=== PATIENT | male | born 1950 | race Caucasian/White ===

== ENCOUNTER 2023-11-03 07:18 | Day surgery (SDC) | payer MEDICARE, BC, SELFPAY ==
--- NOTE | 2023-11-03 | PATH_ITS ---
[facility] Accession Number: [id number] No. of containers..01 Tissue . 01 Material submitted: . colon - COLON, TRANSVERSE . 01 Diagnosis: COLON, TRANSVERSE: Tubular adenoma. STO 11/11/2023 1138 Local . 01 Electronically signed: . Eitan Mendoza MD, Pathologist NPI- [id number] . 01 Gross description: . TRANSVERSE: Received in formalin is 1 fragment(s) of quinn, soft tissue measuring 0.6 x 0.4 x 0.3 cm submitted entirely in 1 cassette(s) /PIETER 11/11/2023 1138 Local . 01 Pathologist provided ICD-10: D12.3 . 01 CPT . 961082 Specimen Comment: A courtesy copy of this report has been sent to [phone] Performed at: [address] [facility] [id number] MD Eitan Mendoza MD Phone: [phone]
[2023-11-03 07:47] VITALS: BP 149/76; PULSE 61; RESP 17; TEMP 36.4; O2SAT 98
[2023-11-03] MEDS: LACTATED RINGERS 1,000 ML 42 ML IV (08:06)
--- NOTE | 2023-11-03 08:36 | P.HP_ITS ---
History of Present Illness History of Present Illness Date Patient Seen: 11/03/23 Time Patient Seen: 08:36 Chief complaint: Dx Colonoscopy w/poss bx Narrative: Pan is a 73-year-old man with a history of colon polyps. His last colonoscopy was about 6 years ago and some polyps were taken. No known family history of colon cancer. [facility] Social History Smoking Status: Never smoker Meds Home Medications and Allergies Home Medications Medication Instructions Recorded Confirmed Type peg 3350-sod sulf,rawxo-eox-nnv 1,000 ml PO DIRECTED #2,000 mL 10/11/23 11/03/23 Rx 178.7-7.3-0.5-1.12-0.9 gram oral soln (Suflave) Allergies Allergy/AdvReac Type Severity Reaction Status Date / Time No Known Drug Allergies Allergy Verified 11/03/23 08:07 Exam Vital Signs (past 8 hours): - 11/03/23 07:47 Temperature 97.6 F Pulse Rate 61 Respiratory Rate 17 Blood Pressure 149/76 H Pulse Oximetry 98 Oxygen Delivery Method Room Air Oxygen Delivery Method Room Air Const General: healthy appearing Resp Effort & Inspection: normal respiratory effort Assessment & Plan Assessment and plan (1) History of colon polyps: Status: Acute Plan We reviewed the risks and benefits of colonoscopy and he would like to proceed.
[2023-11-03 09:12] VITALS: BP 109/65; PULSE 56; RESP 18; TEMP 36.4; O2SAT 97
--- NOTE | 2023-11-03 09:16 | PM.OP.COLON ---
Operative Date/Time/Diagnoses Date of procedure: 11/03/23 Time of procedure: 09:16 Pre-op diagnosis: History of polyps Post-op diagnosis: same Procedure & Clinicians Study performed: Colonoscopy Same procedure as scheduled: Yes Surgeon: Josh Decker Procedure Notes Procedure in detail: Surgeon: Josh Decker MD Anesthesia: Carlo Hobbs MD Procedure: The patient was brought to the endoscopy suite, placed in left lateral decubitus position. The patient was connected to monitoring devices. A time-out was performed. Sedation was administered. Once the patient was adequately sedated, a digital rectal exam was performed and was normal. The scope was then inserted and advanced to the cecum where the appendiceal orifice was identified and photographed. The scope was then slowly withdrawn over greater than 6 minutes. The mucosa was thoroughly inspected. There was a 5 mm polyp in the mid transverse colon removed with a cold snare. There was some diverticulosis in the sigmoid colon. The scope was retroflexed in the rectum. No other abnormalities were seen. The scope was straightened and removed. The patient was awakened and brought to recovery. Scope withdrawal time: 12 minutes Sedation time: 20 minutes EBL: 5 mL Findings: Small polyp in the transverse colon and sigmoid colon diverticulosis Post-procedure Disposition: PACU
[2023-11-03 09:17] VITALS: BP 113/74; PULSE 55; RESP 18; TEMP 36.4; O2SAT 98
[2023-11-03 09:25] VITALS: BP 132/86; PULSE 55; RESP 14; TEMP 36.4; O2SAT 99
== END 2023-11-03 09:37 | disposition home or self-care (01) ==
PROVIDERS: PCP Registered Nurse; Referring Provider Surgery; Visit Provider Surgery
PROC: 0DJD8ZZ Inspection of Lower Intestinal Tract, Via Natural or Artificial Opening Endoscopic (ICD-10-PCS; CPT 45378; principal; 2023-11-03 08:45)
DX: Z12.11 Encounter for screening for malignant neoplasm of colon (principal); K57.30 Diverticulosis of large intestine without perforation or abscess without bleeding; D12.3 Benign neoplasm of transverse colon
CPT/HCPCS: 45385; J2704

== ENCOUNTER → 2024-02-24 10:13 | Outpatient (CLI) | payer MEDICARE, BC, SELFPAY ==
--- NOTE | 2024-02-24 10:14 | DI.CT.S_ITS ---
PROCEDURE: CT ABDOMEN PELVIS WO/W CON INDICATIONS: LUQ PAIN,HAS REMOTE HX OF NEPHROLITIASIS TECHNIQUE: After the administration of oral contrast, 5 mm thick sections acquired from the diaphragms to the iliac crests. After the administration of intravenous contrast, 5 mm thick sections acquired from the diaphragms to the symphysis. 5 mm thick coronal and sagittal reformats were acquired. For radiation dose reduction, the following was used: automated exposure control, adjustment of mA and/or kV according to patient size. COMPARISON: None. FINDINGS: Image quality: Diagnostic Lower chest: Basal atelectasis. No hiatal hernia. Normal heart size Liver: Unremarkable Gallbladder and biliary system: Unremarkable, nondilated Pancreas: No ductal dilation Spleen: Nonenlarged Adrenals: No discrete nodules Kidneys: No solid mass or hydronephrosis No calcified stones. Vessels and lymph nodes: The main portal vein is patent. No abdominal aortic aneurysm. No pathologic lymph nodes by size criteria. Bowel and peritoneum: Colonic diverticula. The appendix is nondilated. No pathologic ascites Body wall: Unremarkable Pelvis: Bladder is unremarkable. Heterogeneous prostate. Bones: Degenerative changes. IMPRESSION: No hydronephrosis or calcified nephrolithiasis. No significant or acute abdominal pelvic finding. Incidental findings above. Dictated by: Jarod Horne M.D. on 02/24/2024 at 15:55 Approved by: Jarod Horne M.D. on 02/24/2024 at 16:06
== END ==
PROVIDERS: PCP Registered Nurse; Referring Provider Registered Nurse; Visit Provider Registered Nurse
DX: J98.11 Atelectasis (principal); R10.12 Left upper quadrant pain; Z87.442 Personal history of urinary calculi
CPT/HCPCS: 74178; Q9967

== ENCOUNTER → 2024-12-29 11:16 | Outpatient (CLI) | payer MEDICARE, BC, SELFPAY ==
--- NOTE | 2024-12-29 11:17 | DI.MRI.S_ITS ---
PROCEDURE: MR LUMBAR SPINE WO CON INDICATIONS: NUMBNESS AND TINGLING TECHNIQUE: Noncontrast sagittal T1 spin echo and T2 fast echo, sagittal STIR, and T2 fast spin echo through the lumbar spine. In cases with scoliosis, additional coronal T2 fast spin echo may be performed. COMPARISON: None. FINDINGS: Image quality: Excellent. Alignment and Curvature: Straightening of the normal lumbar lordosis. Trace retrolisthesis L5-S1. Minor leftward curvature of the lumbar spine with the apex at the L3-4 level. This is secondary to asymmetric, right-sided disc height loss at L3-4 and L4-5. Bone Marrow: Type 2 Schmorl's nodes along the right aspect of the L4-5 endplate, and type 1 Modic changes/osseous edema along the right posterolateral endplates at the L3-4 level. Minor reactive Modic changes at a Schmorl's node at the L1-2 level. Spinal Cord: Conus medullaris terminates at the T12 level. Visualized cord demonstrates normal signal and size. Paraspinous Soft Tissues: No paravertebral masses. T12-L1: Normal appearance. L1-L2: Disc desiccation and moderate disc height loss. Mild circumferential disc bulge. Mild facet arthropathy. No foraminal or central canal stenosis. L2-L3: Moderate to severe disc height loss and mild circumferential disc osteophyte. Mild facet and ligamentum flavum arthropathy. Mild central canal narrowing. No foraminal stenosis. L3-L4: Ldbx-ex-ewsvmvfi disc height loss and desiccation. Circumferential disc osteophyte narrowing the lateral recesses, right more than left. Mild facet arthropathy. No foraminal stenosis. L4-L5: Severe disc height loss and desiccation. Circumferential and right lateral disc osteophyte. Mild facet hypertrophy. Mild right foraminal stenosis. L5-S1: Moderate to severe diffuse disc height loss and desiccation. Mild circumferential disc osteophyte. Mild facet arthropathy. No foraminal or central canal stenosis. IMPRESSION: Multilevel disc and endplate degeneration. Mild lateral recess narrowing due to disc osteophyte at the L3-4 level without significant nerve root displacement or central canal stenosis. No significant foraminal stenosis. Dictated by: Sonal Willis M.D. on 12/31/2024 at 10:58 Approved by: Sonal Willis M.D. on 12/31/2024 at 11:07
== END ==
PROVIDERS: PCP Registered Nurse; Referring Provider Registered Nurse; Visit Provider Registered Nurse
DX: M47.816 Spondylosis without myelopathy or radiculopathy, lumbar region (principal); M47.817 Spondylosis without myelopathy or radiculopathy, lumbosacral region; R20.0 Anesthesia of skin; R20.2 Paresthesia of skin; R26.89 Other abnormalities of gait and mobility
CPT/HCPCS: 72148

== ENCOUNTER → 2025-03-14 14:47 | Outpatient (CLI) | payer MEDICARE, BC, SELFPAY | LOC: PHYS 14:48 | PROVIDERS: Family Provider Registered Nurse; PCP Registered Nurse; Referring Provider Registered Nurse; Visit Provider Registered Nurse | DX: R20.0 Anesthesia of skin (principal); R20.2 Paresthesia of skin | CPT/HCPCS: 95886; 95910 ==